=== PATIENT | male | born 1935 | race African-American/Black ===

== ENCOUNTER → 2017-06-13 | Outpatient (CLI) | payer OTHER, MEDICARE ==
[2016-03-12 09:33] VITALS: BP 143/52
[~2017-06-13] MED LIST: AMLO10TA2 PO; ATOR40TA59 PO; ATORVASTATIN CA80 MG PO; BRIM5DRO3 EACHEYE; CAST120O PO; CHOL10003 PO; CYAN10005 PO; DORZ10DR21 EACHEYE; DULO30CA2 PO; FERR325T58 PO; HYDR-2762 PO; LATA2.5D3 EACHEYE; MECL25TA3 PO; METH-37 PO; METO10TA81 PO; METO5TAB PO; ONDA4TAB12 PO; PANT40TA3 PO; PANT40TA5 PO; POTA10TA10 PO; SUCR1TAB PO; SUCR1TAB35 PO; TRAZ50TA15 PO; VENL225T PO; VITA400C6 PO; VITAMIN B12 PO
--- NOTE | 2017-06-13 09:56 | RAD ---
EXAM: ABDOMINAL ULTRASOUND. HISTORY: Weight loss. COMPARISON: 03/08/2016. FINDINGS: Sonographic evaluation of the abdomen was performed. Visualization of the liver is limited but no abnormality is seen. There are no focal lesions. The spleen measures 8.9 cm. The gallbladder is unremarkable without evidence of stones, wall thickening or pericholecystic fluid. There is no sonographic Mora sign. The common duct measures 4 mm. The pancreas is obscured currently. The right kidney measures 9.5 cm. Cortical thickness and echogenicity are preserved. There is no hydronephrosis. The left kidney measures 9.9 cm. Cortical thickness and echogenicity are preserved. There is no hydronephrosis. Cortical lobulation bilaterally is stable and may be developmental. The visualized portions of the abdominal aorta and inferior vena cava are grossly patent and normal in caliber. IMPRESSION: 1. The pancreas is obscured currently. No abnormality is identified.
== END | disposition home or self-care (01) ==
LOC: US 08:47
PROVIDERS: ATTEND Family Medicine
DX: R63.4 Abnormal weight loss (principal); D51.3 Other dietary vitamin B12 deficiency anemia; D50.9 Iron deficiency anemia, unspecified; E11.21 Type 2 diabetes mellitus with diabetic nephropathy; R63.0 Anorexia
CPT/HCPCS: 76700

== ENCOUNTER 2017-06-30 12:19 | Inpatient (IN) | payer MEDICARE, OTHER ==
[~2017-06-30] VITALS: Ht 175.3 cm; Wt 73.5 kg
[2017-06-30] MEDS ORDERED: ONDANSETRON PF 4 MG/2 ML VIAL. IV PRN (13:00)
[2017-06-30] MEDS ORDERED: fentaNYL PF 100 MCG/2 ML VIAL IV PRN (13:00)
[2017-06-30] MEDS ORDERED: IV NORMAL SALINE 1,000ML 1,000 ML IV SCH (13:00)
[2017-06-30] MEDS ORDERED: IOHEXOL 240 MG/ML 50ML VIAL. ONE (13:03)
[2017-06-30] MEDS ORDERED: ONDANSETRON ODT 4 MG TAB.RAPDIS PO PRN (13:15)
[2017-06-30 13:34] VITALS: BP 119/62
[2017-06-30 13:40] LABS: BASO % 0 % (0-3); EOS # 0.2 x10^3/uL (0.0-0.7); EOS % 4 % (0-3); HEMATOCRIT 31.1 % (39.0-53.0); HEMOGLOBIN 10.3 g/dL (13.0-17.5); LYMPH % 17 % (24-48); MEAN CORPUSCULAR HEMOGLOBIN 30 pg (25-35); MEAN CORPUSCULAR HGB CONC 33 g/dL (31-37); MEAN CORPUSCULAR VOLUME 90 fL (79-100); MONO # 0.6 x10^3/uL (0.0-1.1); MONO % 10 % (0-9); NEUT # 4.4 x10^3uL (1.8-7.7); NEUT % 70 % (31-73); PLATELET COUNT 177 x10^3/uL (140-400); RED BLOOD COUNT 3.43 x10^6/uL (4.30-5.70); RED CELL DISTRIBUTION WIDTH 13.7 % (11.5-14.5); WHITE BLOOD COUNT 6.3 x10^3/uL (4.0-11.0)
[2017-06-30 13:48] LABS: ALBUMIN 3.4 g/dL (3.4-5.0); CALCIUM 8.6 mg/dL (8.5-10.1); CREATININE 1.5 mg/dL (0.7-1.3); GFR 54.1; MAGNESIUM 2.1 mg/dL (1.8-2.4); POTASSIUM 3.8 mmol/L (3.5-5.1); TOTAL BILIRUBIN 0.5 mg/dL (0.2-1.0); TOTAL PROTEIN 6.8 g/dL (6.4-8.2)
[2017-06-30] MEDS ORDERED: MECLIZINE 25 MG TABLET PO SCH (14:00)
[2017-06-30] MEDS ORDERED: MECLIZINE 25 MG TABLET PO PRN (14:30)
[2017-06-30] MEDS: METHOCARBAMOL 500 MG TABLET PO SCH ×2 (15:03→21:14)
[2017-06-30] MEDS: POTASSIUM CHLORIDE 30 MEQ in IV 1/2 NORMAL SALINE 1,000 ML IV SCH (15:04)
[2017-06-30] MEDS: POLYETHYLENE GLYCOL 3350 17 GM PACKET. PO SCH (15:07)
--- NOTE | 2017-06-30 15:45 | RAD ---
CT head without contrast 06/30/2017 Clinical indication: Headache. Comparison: CT head January 21, 2016 Technique: Multiple CT noncontrast images of the head were obtained according to standard protocol. RS Compliance Statement: One or more of the following individualized dose reduction techniques were utilized for this examination: 1. Automated exposure control 2. Adjustment of the mA and/or kV according to patient size 3. Use of iterative reconstruction technique Head findings: No acute intracranial hemorrhage or extra-axial fluid collection. There is unchanged moderate patchy and confluent hemispheric white matter low attenuation compatible with moderate nonspecific white matter disease. Ventricles and subarachnoid spaces are normal in size and configuration. Basilar cisterns are patent. No midline shift. There is calcified atheromatous disease of the distal internal carotid arteries. Mastoid air cells and visualized paranasal sinuses are well aerated. Impression: 1. No acute intracranial hemorrhage. 2. Moderate nonspecific white matter disease, most commonly seen in chronic small vessel ischemic disease per
[2017-06-30] MEDS ORDERED: ENOXAPARIN 30 MG/0.3 ML DISP.SYRIN. SQ SCH (16:00)
--- NOTE | 2017-06-30 16:20 | RAD ---
CT abdomen and pelvis with contrast 06/30/2017 Clinical indication: Loss of appetite and diffuse abdominal pain. Comparison: CT abdomen and pelvis March 08, 2016. Technique: Multiple CT images of the abdomen and pelvis were obtained following uneventful intravenous administration of 60 mL Omnipaque 300. PQRS Compliance Statement: One or more of the following individualized dose reduction techniques were utilized for this examination: 1. Automated exposure control 2. Adjustment of the mA and/or kV according to patient size 3. Use of iterative reconstruction technique Findings: Abdomen and pelvis: Heart size and visualized lung bases are clear. Liver, gallbladder, spleen, adrenal glands and pancreas are within normal limits. No intra or extrahepatic biliary ductal dilatation. There is mild areas of cortical scarring both kidneys. There are bilateral renal hypodensities which are too small to definitively characterize. No collecting system dilatation. Abdominal aorta is normal in caliber with mild air iliac calcified atheromatous disease. Major portal, splenic and visualized upper spine mesenteric veins are widely patent. Small and large bowel loops are normal in caliber without obstruction. Appendix is normal in appearance. There are few colonic diverticula without evidence for diverticulitis. No abdominal free fluid. No pneumoperitoneum. No retroperitoneal or mesenteric lymphadenopathy. Mildly distended and unopacified urinary bladder is within normal limits. Prior prostatectomy and bilateral pelvic lymph node dissection and. Seminal vesicles are present. No iliac or inguinal lymphadenopathy. There is multilevel degenerative disc disease of the thoracic and lumbar spine greatest to moderate degree at L5-S1. 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 There are multiple metallic foreign bodies adjacent to the posterior left 10th rib. Impression: 1. No evidence of abdominal pelvic mass or lymphadenopathy. 2. Prior prostatectomy and pelvic lymph node dissection.
[2017-06-30 17:00] VITALS: BP 140/61
[2017-06-30] MEDS: SUCRALFATE 1 GM TABLET. PO SCH ×2 (17:10→21:14)
[2017-06-30 19:36] VITALS: BP 110/57
[2017-06-30] MEDS ORDERED: LATANOPROST 0.005% OPHTH SOLUTION 2.5ML BOTTLE. OU SCH (21:00)
[2017-06-30] MEDS: BRIMONIDINE 0.2% OPHTH SOLUTION 5ML BOTTLE. OU SCH (21:13)
[2017-06-30] MEDS: DORZOLAMIDE/TIMOLOL 2%/0.5% OPHTH SOLUTION 10ML BOTTLE. OU SCH (21:13)
[2017-06-30] MEDS: DOCUSATE SODIUM 100 MG CAPSULE PO SCH (21:13)
[2017-06-30] MEDS: MIRTAZAPINE 30 MG TABLET PO SCH (21:14)
[2017-06-30] MEDS: TAMSULOSIN 0.4 MG CAP.ER.24H. PO SCH (21:14)
[2017-06-30 21:27] LABS: BILIRUBIN,URINE NEG (NEG); CLARITY,URINE CLEAR; COLOR,URINE STRAW; GLUCOSE,URINE NEG (NEG); NITRITE,URINE NEG (NEG); UROBILINOGEN,URINE 0.2 mg/dL (0.2 mg/dL)
[2017-06-30 21:35] LABS: BACTERIA,URINE 0 /HPF (0-FEW); RBC,URINE 0 /HPF (0-2); SQUAMOUS EPITHELIAL CELL,UR OCC /LPF; WBC,URINE OCC /HPF (0-4)
[2017-06-30 22:54] VITALS: BP 133/71
[2017-06-30] MEDS: HYDROcodone/APAP 7.5/325MG 1 TAB TABLET PO PRN (22:57)
[2017-07-01] MEDS: POTASSIUM CHLORIDE 30 MEQ in IV 1/2 NORMAL SALINE 1,000 ML IV SCH ×3 (03:32→20:33)
[2017-07-01 05:57] VITALS: BP 146/49
[2017-07-01 06:06] LABS: BASO % 1 % (0-3); EOS # 0.3 x10^3/uL (0.0-0.7); EOS % 6 % (0-3); HEMATOCRIT 30.9 % (39.0-53.0); HEMOGLOBIN 10.2 g/dL (13.0-17.5); LYMPH # 1.5 x10^3/uL (1.0-4.8); LYMPH % 26 % (24-48); MEAN CORPUSCULAR HEMOGLOBIN 30 pg (25-35); MEAN CORPUSCULAR HGB CONC 33 g/dL (31-37); MEAN CORPUSCULAR VOLUME 90 fL (79-100); MONO # 0.7 x10^3/uL (0.0-1.1); MONO % 12 % (0-9); NEUT # 3.2 x10^3uL (1.8-7.7); NEUT % 56 % (31-73); PLATELET COUNT 178 x10^3/uL (140-400); RED BLOOD COUNT 3.42 x10^6/uL (4.30-5.70); RED CELL DISTRIBUTION WIDTH 13.9 % (11.5-14.5); WHITE BLOOD COUNT 5.7 x10^3/uL (4.0-11.0)
[2017-07-01 06:10] LABS: CALCIUM 8.6 mg/dL (8.5-10.1); CREATININE 1.4 mg/dL (0.7-1.3); GFR 58.6; MAGNESIUM 2.1 mg/dL (1.8-2.4); POTASSIUM 4.2 mmol/L (3.5-5.1)
[2017-07-01] MEDS: POLYETHYLENE GLYCOL 3350 17 GM PACKET. PO SCH (08:58)
[2017-07-01] MEDS: BRIMONIDINE 0.2% OPHTH SOLUTION 5ML BOTTLE. OU SCH ×3 (09:00→20:30)
[2017-07-01] MEDS ORDERED: VENLAFAXINE 50 MG TABLET. PO SCH (09:00)
[2017-07-01] MEDS: DORZOLAMIDE/TIMOLOL 2%/0.5% OPHTH SOLUTION 10ML BOTTLE. OU SCH ×2 (09:00→20:30)
[2017-07-01] MEDS: DOCUSATE SODIUM 100 MG CAPSULE PO SCH ×2 (09:01→20:30)
[2017-07-01] MEDS: POTASSIUM CHLORIDE 10 MEQ TABLET.ER. PO SCH (09:01)
[2017-07-01] MEDS: SUCRALFATE 1 GM TABLET. PO SCH ×4 (09:01→20:30)
[2017-07-01] MEDS: PANTOPRAZOLE 40 MG TABLET. PO SCH (09:01)
[2017-07-01] MEDS: FERROUS SULFATE 325 MG TABLET PO SCH (09:01)
[2017-07-01] MEDS: METHOCARBAMOL 500 MG TABLET PO SCH ×3 (09:01→20:30)
[2017-07-01] MEDS: PHENAZOPYRIDINE 200 MG TABLET. PO SCH (09:01)
[2017-07-01] MEDS: amLODIPine BESYLATE 10 MG TABLET PO SCH (09:02)
[2017-07-01] MEDS: DULoxetine HCL 30 MG CAPSULE.DR PO SCH (09:02)
[2017-07-01] MEDS: HYDROcodone/APAP 7.5/325MG 1 TAB TABLET PO PRN (09:07)
[2017-07-01] MEDS: ENOXAPARIN 40 MG/0.4 ML DISP.SYRIN. SQ SCH (09:08)
[2017-07-01] MEDS: LATANOPROST 0.005% OPHTH SOLUTION 2.5ML BOTTLE. OU SCH ×2 (10:41→20:30)
[2017-07-01 11:25] VITALS: BP 105/55
--- NOTE | 2017-07-01 13:43 | RAD ---
Ventilation/perfusion lung scan, 07/01/2017: History: Elevated d-dimer The ventilation study was performed utilizing 8.5 mCi of xenon-133. Activity in the lungs is mildly heterogeneous. There is minimal patchy retention on the washout phase. Perfusion imaging was performed utilizing 8.5 mCi of xenon-133. A similar pattern of activity is present in the lungs. No significant unmatched or segmental perfusion defects are seen. IMPRESSION: There are no VQ findings to suggest pulmonary emboli.
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
[2017-07-01 15:45] VITALS: BP 121/57
[2017-07-01 19:29] VITALS: BP 121/63
[2017-07-01] MEDS: TAMSULOSIN 0.4 MG CAP.ER.24H. PO SCH (20:30)
[2017-07-01] MEDS: traZODone 50 MG TABLET. PO PRN (20:31)
[2017-07-01] MEDS: MIRTAZAPINE 30 MG TABLET PO SCH (20:31)
[2017-07-01 22:48] VITALS: BP 109/67
--- NOTE | 2017-07-02 01:45 | PN ---
DATE: 07/01/2017 SUBJECTIVE: The patient is still not feeling very well overall, says he just feels sick, hard to put a finger on what exactly he feels well about. He just says he just does not feel good. VITAL SIGNS: His blood pressure is 120/60, respiratory rate 20, pulse 76, afebrile, good oxygen saturation. LABORATORY DATA: His labs showed elevated D-dimer, but the V/Q scan was unremarkable. The patient's chemistries outside ____ slightly elevated creatinine and his electrolytes panel does not look getting things significant. His hemoglobin remained stable at 10.2 and 30. Sed rate was slightly elevated at 18. Otherwise, the urine was unremarkable. The patient had a CT scan of his abdomen and pelvis, which was unremarkable. The chest x-ray was unremarkable and he had a head CT scan that was also unremarkable as well. IMPRESSION: Failure to thrive, dehydration. PLAN: Continue with IV fluids and we will try to make some adjustment on his medication to see if this does not help him. MELLISSA CHAN MD DR: SPENCER/janie JOB#: [id number] / [id number]
[2017-07-02 05:01] VITALS: BP 133/72
[2017-07-02] MEDS: POTASSIUM CHLORIDE 30 MEQ in IV 1/2 NORMAL SALINE 1,000 ML IV SCH ×2 (05:02→20:13)
[2017-07-02 06:15] LABS: BASO % 1 % (0-3); EOS # 0.3 x10^3/uL (0.0-0.7); EOS % 6 % (0-3); HEMATOCRIT 31.8 % (39.0-53.0); HEMOGLOBIN 10.5 g/dL (13.0-17.5); LYMPH # 0.9 x10^3/uL (1.0-4.8); LYMPH % 17 % (24-48); MEAN CORPUSCULAR HEMOGLOBIN 30 pg (25-35); MEAN CORPUSCULAR HGB CONC 33 g/dL (31-37); MEAN CORPUSCULAR VOLUME 91 fL (79-100); MONO # 0.6 x10^3/uL (0.0-1.1); MONO % 11 % (0-9); NEUT # 3.6 x10^3uL (1.8-7.7); NEUT % 66 % (31-73); PLATELET COUNT 181 x10^3/uL (140-400); RED BLOOD COUNT 3.48 x10^6/uL (4.30-5.70); RED CELL DISTRIBUTION WIDTH 13.7 % (11.5-14.5); WHITE BLOOD COUNT 5.4 x10^3/uL (4.0-11.0)
[2017-07-02 06:21] LABS: CALCIUM 8.5 mg/dL (8.5-10.1); CREATININE 1.5 mg/dL (0.7-1.3); GFR 54.1; MAGNESIUM 2.1 mg/dL (1.8-2.4); POTASSIUM 4.8 mmol/L (3.5-5.1)
[2017-07-02] MEDS: BRIMONIDINE 0.2% OPHTH SOLUTION 5ML BOTTLE. OU SCH ×3 (08:30→20:14)
[2017-07-02] MEDS: LATANOPROST 0.005% OPHTH SOLUTION 2.5ML BOTTLE. OU SCH ×2 (08:30→20:14)
[2017-07-02] MEDS: POLYETHYLENE GLYCOL 3350 17 GM PACKET. PO SCH (08:31)
[2017-07-02] MEDS: DORZOLAMIDE/TIMOLOL 2%/0.5% OPHTH SOLUTION 10ML BOTTLE. OU SCH ×2 (08:31→20:14)
[2017-07-02] MEDS: DOCUSATE SODIUM 100 MG CAPSULE PO SCH ×2 (08:32→20:13)
[2017-07-02] MEDS: METHOCARBAMOL 500 MG TABLET PO SCH ×3 (08:32→20:13)
[2017-07-02] MEDS: SUCRALFATE 1 GM TABLET. PO SCH ×4 (08:32→20:13)
[2017-07-02] MEDS: POTASSIUM CHLORIDE 10 MEQ TABLET.ER. PO SCH (08:32)
[2017-07-02] MEDS: ENOXAPARIN 40 MG/0.4 ML DISP.SYRIN. SQ SCH (08:32)
[2017-07-02] MEDS: PANTOPRAZOLE 40 MG TABLET. PO SCH ×2 (08:32→10:26)
[2017-07-02] MEDS: FERROUS SULFATE 325 MG TABLET PO SCH (08:32)
[2017-07-02] MEDS: PHENAZOPYRIDINE 200 MG TABLET. PO SCH (08:33)
[2017-07-02] MEDS: DULoxetine HCL 30 MG CAPSULE.DR PO SCH (08:33)
[2017-07-02] MEDS: amLODIPine BESYLATE 10 MG TABLET PO SCH (08:33)
[2017-07-02] MEDS ORDERED: methylPREDNISolone SOD SUCC PF 40 MG/ML VIAL. IV ONE (10:00)
[2017-07-02 10:37] VITALS: BP 128/67
[2017-07-02 14:36] VITALS: BP 106/61
[2017-07-02 19:18] VITALS: BP 128/66
[2017-07-02] MEDS: MIRTAZAPINE 30 MG TABLET PO SCH (20:13)
[2017-07-02] MEDS: traZODone 50 MG TABLET. PO PRN (20:13)
[2017-07-02] MEDS: TAMSULOSIN 0.4 MG CAP.ER.24H. PO SCH (20:13)
[2017-07-02 23:43] VITALS: BP 128/70
[2017-07-03 05:11] VITALS: BP 142/68
[2017-07-03] MEDS: POTASSIUM CHLORIDE 10 MEQ TABLET.ER. PO SCH (07:30)
[2017-07-03] MEDS: PANTOPRAZOLE 40 MG TABLET. PO SCH ×2 (07:30→08:28)
[2017-07-03] MEDS: PHENAZOPYRIDINE 200 MG TABLET. PO SCH (08:28)
[2017-07-03] MEDS: DOCUSATE SODIUM 100 MG CAPSULE PO SCH ×2 (08:28→20:29)
[2017-07-03] MEDS: SUCRALFATE 1 GM TABLET. PO SCH ×4 (08:28→20:29)
[2017-07-03] MEDS: METHOCARBAMOL 500 MG TABLET PO SCH ×3 (08:28→20:29)
[2017-07-03] MEDS: DULoxetine HCL 30 MG CAPSULE.DR PO SCH (08:28)
[2017-07-03] MEDS: FERROUS SULFATE 325 MG TABLET PO SCH (08:28)
[2017-07-03] MEDS: amLODIPine BESYLATE 10 MG TABLET PO SCH (08:29)
[2017-07-03] MEDS: LATANOPROST 0.005% OPHTH SOLUTION 2.5ML BOTTLE. OU SCH ×2 (08:29→20:28)
[2017-07-03] MEDS: DORZOLAMIDE/TIMOLOL 2%/0.5% OPHTH SOLUTION 10ML BOTTLE. OU SCH ×2 (08:29→20:28)
[2017-07-03] MEDS: BRIMONIDINE 0.2% OPHTH SOLUTION 5ML BOTTLE. OU SCH ×3 (08:29→20:28)
[2017-07-03] MEDS: POLYETHYLENE GLYCOL 3350 17 GM PACKET. PO SCH (08:30)
[2017-07-03] MEDS: ENOXAPARIN 40 MG/0.4 ML DISP.SYRIN. SQ SCH (08:30)
[2017-07-03] MEDS: POTASSIUM CHLORIDE 30 MEQ in IV 1/2 NORMAL SALINE 1,000 ML IV SCH (10:36)
[2017-07-03 11:00] VITALS: BP 136/62
[2017-07-03 15:15] VITALS: BP 111/64
[2017-07-03 16:57] LABS: FECAL OB PT NEGATIVE (NEG)
[2017-07-03] MEDS ORDERED: methylPREDNISolone SOD SUCC PF 40 MG/ML VIAL. IV ONE (17:00)
[2017-07-03] MEDS ORDERED: MAGNESIUM HYDROXIDE 2,400 MG/30 ML ORAL.SUSP. PO PRN (17:00)
[2017-07-03 18:54] VITALS: BP 150/66
[2017-07-03] MEDS: TAMSULOSIN 0.4 MG CAP.ER.24H. PO SCH (20:29)
[2017-07-03] MEDS: MIRTAZAPINE 30 MG TABLET PO SCH (20:29)
--- NOTE | 2017-07-04 01:38 | PN ---
DATE: 06/30/2017 SUBJECTIVE: The patient is still fairly weak having some abdominal discomfort ____ several days. OBJECTIVE: VITAL SIGNS: Otherwise, blood pressure 150/66, respiratory rate 18, pulse 70, and afebrile. LUNGS: Diminished throughout. Some coarse breath sounds. CARDIOVASCULAR: Regular sinus rhythm. ABDOMEN: Soft, bloated, and distended. EXTREMITIES: No clubbing, cyanosis, or edema. NEUROLOGIC: Intact ___. The patient otherwise seems to be doing relatively well. IMPRESSION: Abdominal pain, constipation, weakness, bronchitis, and failure to thrive. PLAN: We will go ahead and continue on the IV antibiotic therapy as well as giving additional laxatives. Continue present drug regimen and hopefully ready for discharge. MELLISSA CHAN MD DR: SPENCER/janie JOB#: [id number] / [id number]
[2017-07-04 06:05] VITALS: BP 162/89
[2017-07-04] MEDS: POLYETHYLENE GLYCOL 3350 17 GM PACKET. PO SCH (07:56)
[2017-07-04] MEDS: FERROUS SULFATE 325 MG TABLET PO SCH (07:57)
[2017-07-04] MEDS: SUCRALFATE 1 GM TABLET. PO SCH (07:57)
[2017-07-04] MEDS: PANTOPRAZOLE 40 MG TABLET. PO SCH ×2 (07:57→08:01)
[2017-07-04] MEDS: amLODIPine BESYLATE 10 MG TABLET PO SCH (07:57)
[2017-07-04] MEDS: DOCUSATE SODIUM 100 MG CAPSULE PO SCH (07:57)
[2017-07-04] MEDS: DORZOLAMIDE/TIMOLOL 2%/0.5% OPHTH SOLUTION 10ML BOTTLE. OU SCH (07:57)
[2017-07-04] MEDS: POTASSIUM CHLORIDE 10 MEQ TABLET.ER. PO SCH (07:57)
[2017-07-04] MEDS: LATANOPROST 0.005% OPHTH SOLUTION 2.5ML BOTTLE. OU SCH (07:58)
[2017-07-04] MEDS: BRIMONIDINE 0.2% OPHTH SOLUTION 5ML BOTTLE. OU SCH (07:58)
[2017-07-04] MEDS: PHENAZOPYRIDINE 200 MG TABLET. PO SCH (08:05)
[2017-07-04] MEDS: DULoxetine HCL 30 MG CAPSULE.DR PO SCH (08:05)
[2017-07-04] MEDS: ENOXAPARIN 40 MG/0.4 ML DISP.SYRIN. SQ SCH (08:05)
[2017-07-04] MEDS: METHOCARBAMOL 500 MG TABLET PO SCH (08:08)
[2017-07-04 10:14] VITALS: BP 112/55
[2017-07-04] MEDS ORDERED: PRED-220 PO (11:42)
== END 2017-07-04 13:50 | disposition home or self-care (01) | DRG 392 ==
LOC: 1 SOUTH 12:41 → ICU 07-04 05:38
PROVIDERS: ADMIT Family Medicine; ATTEND Family Medicine
DX: R10.9 Unspecified abdominal pain (principal); E86.0 Dehydration; J40 Bronchitis, not specified as acute or chronic; K59.00 Constipation, unspecified; R62.7 Adult failure to thrive; I10 Essential (primary) hypertension; K21.9 Gastro-esophageal reflux disease without esophagitis; E78.00 Pure hypercholesterolemia, unspecified; E11.8 Type 2 diabetes mellitus with unspecified complications; M25.561 Pain in right knee
CPT/HCPCS: 36415; 70450; 71020; 74177; 78582; 80048; 80053; 81001; 82274; 83605; 83735; 84484; 85027; 85379; 85651; 87086; 96374; A9540; A9558; J0696; J1650; J2920; J7030; Q0162

== ENCOUNTER → 2017-09-01 | Outpatient (CLI) | payer MEDICARE, OTHER ==
[~2017-09-01] MED LIST changes: +IOHEXOL 240 MG/ML 50ML VIAL. ONE; +IOHEXOL 300 MG/ML 75 ML VIAL. IV ONE; +PRED-220 PO
[2017-09-01 11:27] LABS: CREATININE 1.4 mg/dL (0.7-1.3); GFR 58.6
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
== END | disposition home or self-care (01) ==
LOC: CT 10:37
PROVIDERS: ATTEND Internal Medicine Gastroenterology
DX: N28.89 Other specified disorders of kidney and ureter (principal); R63.4 Abnormal weight loss; K46.9 Unspecified abdominal hernia without obstruction or gangrene; M47.899 Other spondylosis, site unspecified; Z85.46 Personal history of malignant neoplasm of prostate; Z90.79 Acquired absence of other genital organ(s)
CPT/HCPCS: 36415; 71260; 74177; 82565; 84520; Q9966; Q9967

== ENCOUNTER → 2017-12-22 | Day surgery (SDC) | payer MEDICARE, OTHER ==
[2017-12-21 09:08] VITALS: BP 93/58
[~2017-12-22] MED LIST changes: -IOHEXOL 240 MG/ML 50ML VIAL. ONE; -IOHEXOL 300 MG/ML 75 ML VIAL. IV ONE; +IV RINGERS SOLUTION,LACTATED 1,000 ML IV ONE; +PHENYLEPHRINE 10 MG/ML VIAL. IV ONE
== END | disposition home or self-care (01) ==
LOC: SURG 08:21
PROVIDERS: ATTEND Internal Medicine Gastroenterology
DX: K29.70 Gastritis, unspecified, without bleeding (principal); K21.9 Gastro-esophageal reflux disease without esophagitis; E78.00 Pure hypercholesterolemia, unspecified; M19.90 Unspecified osteoarthritis, unspecified site; F32.9 Major depressive disorder, single episode, unspecified; D64.9 Anemia, unspecified; Z98.41 Cataract extraction status, right eye; Z86.39 Personal history of other endocrine, nutritional and metabolic disease; Z98.42 Cataract extraction status, left eye; Z88.8 Allergy status to other drugs, medicaments and biological substances; Z91.048 Other nonmedicinal substance allergy status
CPT/HCPCS: 43239; 82947; J7120

== ENCOUNTER → 2017-12-23 | Outpatient (CLI) | payer OTHER, MEDICARE ==
[2017-12-21 09:08] VITALS: BP 93/58
[~2017-12-23] MED LIST changes: -IV RINGERS SOLUTION,LACTATED 1,000 ML IV ONE; -PHENYLEPHRINE 10 MG/ML VIAL. IV ONE
--- NOTE | 2017-12-23 11:25 | RAD ---
Radionuclide gastric emptying study, 12/23/2017: History: Abdominal pain The study was performed utilizing a solid test meal radiolabeled with 2 mCi of technetium 99m sulfur colloid. The time to half emptying of the test meal from the patient's stomach was estimated at 84 minutes. A normal T1/2 is 60 minutes +/- 30 minutes. IMPRESSION: Normal gastric emptying time.
== END | disposition home or self-care (01) ==
LOC: NM 09:22
PROVIDERS: ATTEND Internal Medicine Gastroenterology
DX: R10.9 Unspecified abdominal pain (principal); I12.9 Hypertensive chronic kidney disease with stage 1 through stage 4 chronic kidney disease, or unspecified chronic kidney disease; E11.22 Type 2 diabetes mellitus with diabetic chronic kidney disease; N18.3 Chronic kidney disease, stage 3 (moderate); E11.21 Type 2 diabetes mellitus with diabetic nephropathy; N17.0 Acute kidney failure with tubular necrosis; D63.1 Anemia in chronic kidney disease
CPT/HCPCS: 78264; A9541

== ENCOUNTER 2018-12-04 07:16 | Emergency (ER) | payer OTHER ==
[~2018-12-04] VITALS: Ht 167.6 cm; Wt 78.6 kg
[~2018-12-04 07:16] MED LIST changes: -AMLO10TA2 PO; +AMLO10TA6 PO; -HYDR-2762 PO; +HYDR-2765 PO; +TRAZ-85 PO; -TRAZ50TA15 PO
[2018-12-04] MEDS ORDERED: LIDOCAINE 1% PF 30 ML VIAL. INJ ONE (08:00)
--- NOTE | 2018-12-04 08:06 | PHYS DOC ---
Past History Past Medical History: Hypertension, Other Past Surgical History: Other Smoking: Non-smoker Alcohol Use: None Drug Use: None Adult General Chief Complaint Chief Complaint: MECHANICAL FALL HPI HPI Patient is a 83 year old male who presents with complaining of a fall this morning. Patient states he wanted to take his trash out and had a fall from his porch and landed on his face and had laceration of his lip and inside of his mouth without loss of consciousness and other injuries. Patient states he is up- to-date with his tetanus immunization. Review of Systems Review of Systems Constitutional: Denies fever or chills [] Eyes: Denies change in visual acuity, redness, or eye pain [] HENT: Denies nasal congestion or sore throat [] Respiratory: Denies cough or shortness of breath [] Cardiovascular: No additional information not addressed in HPI [] GI: Denies abdominal pain, nausea, vomiting, bloody stools or diarrhea [] : Denies dysuria or hematuria [] Musculoskeletal: Denies back pain or joint pain [] Integument: Denies rash or skin lesions, reports laceration [] Neurologic: Denies headache, focal weakness or sensory changes [] Endocrine: Denies polyuria or polydipsia [] All other systems were reviewed and found to be within normal limits, except as documented in this note. Current Medications Current Medications Current Medications Medications (Trade) Dose Ordered Sig/Suzi Start Time Stop Time Status Last Admin Dose Admin Lidocaine HCl (Lidocaine 1% Pf) 30 ml 1X ONCE 12/04/18 08:00 12/04/18 08:01 Allergies Allergies Allergies Coded Allergies Type Severity Reaction Last Updated Verified venom-honey bee Allergy Severe 01/18/16 Yes niacin Allergy Intermediate 01/18/16 Yes oxycodone Allergy Intermediate 01/22/16 Yes sulindac Allergy Intermediate 01/18/16 Yes promethazine Allergy Mild Unknown 06/30/17 Yes Physical Exam Physical Exam Constitutional: Well developed, well nourished, mild distress, non-toxic appearance. [] HENT: Normocephalic, 0.5 cm superficial transverse laceration of lower lip in midline, irregular large laceration of oral mucosa of lower lip with mild bleeding, bilateral external ears normal, oropharynx moist, no oral exudates, nose normal. [] Eyes: Left eye enucleation] Neck: Normal range of motion, no tenderness, supple, no stridor. [] Cardiovascular:Heart rate regular rhythm, no murmur [] Lungs & Thorax: Bilateral breath sounds clear to auscultation [] Abdomen: Bowel sounds normal, soft, no tenderness, no masses, no pulsatile masses. [] Skin: Warm, dry, no erythema, no rash. [] Back: No tenderness, no CVA tenderness. [] Extremities: No tenderness, no cyanosis, no clubbing, ROM intact, no edema. [] Neurologic: Alert and oriented X 3, normal motor function, normal sensory function, no focal deficits noted. [] Psychologic: Affect normal, judgement normal, mood normal. [] EKG EKG [] Radiology/Procedures Radiology/[place] [address] IMAGING REPORT Signed PATIENT: CARLOS ABEL ACCOUNT: [id number] : 1935 LOCATION: ER AGE: 83 SEX: M EXAM STATUS: REG ER ORD. PHYSICIAN: COLIN LAINEZ MD REASON: fall PROCEDURE: CT HEAD AND CERVICAL SPINE WO EXAM: Head and cervical spine CT without contrast. HISTORY: Fall. TECHNIQUE: Computed tomographic images of the head and cervical spine were obtained without contrast. *One or more of the following individualized dose reduction techniques were utilized for this examination: 1. Automated exposure control. 2. Adjustment of the mA and/or kV according to patient size. 3. Use of iterative reconstruction technique. COMPARISON: 06/30/2017. FINDINGS: Head: There is no acute or subacute hemorrhage. There is no mass effect or midline shift. There is no hydrocephalus. There is cerebral atrophy. There is extensive hypodensity throughout the cerebral white matter, likely due to chronic small vessel disease. There are basal ganglia calcifications. There is encephalomalacia within the right cerebellum likely due to chronic infarction. 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 There is evidence of right lens surgery. The mastoid air cells and paranasal sinuses are unremarkable. Cervical spine: There is cervical kyphosis and mild multilevel listhesis. There is degenerative endplate remodeling with disc space narrowing and osteophytosis primarily at C4-C5. There are multiple endplate Schmorl's nodes. There is advanced facet arthropathy at multiple levels. No displaced fracture is seen. There is calcified plaque within the carotid bifurcations. There is a heterogeneous thyroid without discrete nodule. At C2-C3, there is a disc bulge and endplate remodeling. There is moderate right and mild left facet arthropathy. There is a right uncovertebral arthropathy. There is moderate right foraminal stenosis. At C3-C4, there is a disc bulge and endplate osteophytosis. There is mild bilateral facet arthropathy. There is bilateral uncovertebral therapy. There is moderate bilateral foraminal stenosis. At C4-C5, there is a disc bulge and endplate osteophytosis with suspected superimposed left paracentral disc protrusion. There is mild right and moderate left facet arthropathy. There is bilateral uncovertebral therapy. There is mild to moderate right and moderate left foraminal stenosis. At C5-C6, there is a disc bulge and endplate osteophytosis with possible posterior central disc protrusion. There is mild right and moderate left facet arthropathy. There is bilateral uncovertebral arthropathy. There is moderate bilateral foraminal stenosis. At C6-C7, there is a disc bulge and endplate osteophytosis. There is bilateral uncovertebral arthropathy. There is moderate right and [id number] left foraminal stenosis. IMPRESSION: 1. No acute intracranial finding or evidence of acute cervical spine trauma. 2. Extensive hypodensity throughout the cerebral white matter, likely due to chronic small vessel disease. 3. Cerebral atrophy. 4. 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 5. Multilevel degenerative change within the cervical spine, resulting in stenosis as described above. Electronically signed by: Jessica Herrera MD (12/04/2018 9:04 AM) [place] [id number] DICTATED AND SIGNED BY: JESSICA HERRERA MD DATE: 12/04/18 0900 CC: MELLISSA CHAN MD; COLIN LAINEZ MD ~ Course & Med Decision Making Course & Med Decision Making Pertinent Imaging studies reviewed. (See chart for details) Evaluation of patient in ER showed 83-year-old male patient with a fall and injury to oral mucosa with laceration that was repaired in ER without problem. CT head and cervical spine was unremarkable and patient ambulated without problem. Dragon Disclaimer Dragon Disclaimer This electronic medical record was generated, in whole or in part, using a voice recognition dictation system. Departure Departure: Impression: Primary Impression: Laceration of oral cavity Additional Impressions: Avulsion of tooth Lip laceration Fall at home Disposition: HOME, SELF-CARE (at 0913) Condition: IMPROVED Referrals: MELLISSA CHAN MD (PCP) Patient Instructions: Absorbable Suture Repair-Brief, Fall Prevention and Home Safety, Mouth Injury, Generic, Mouth Laceration Additional Instructions: Drink plenty of liquids Follow-up with your primary care physician in 3-5 days Return to ER if not getting better Suture inside of your mouth and lip does not need to remove Scripts Acetaminophen With Codeine (TYLENOL WITH CODEINE #3 TABLET) 1 Each Tablet 1 TAB PO Q6HRS PRN for PAIN, #14 TAB Prov: COLIN LAINEZ MD 12/04/18 Laceration Repair Lac Repair Indication: Oral laceration Procedure: The patient was placed in the appropriate position and anesthesia around the lower leg and insight of oral mucosa with 1% lidocaine was given. The area was then cleaned normal saline, 0.5 cm laceration of lower lip was repaired with one suture of Vicryl 4-0.]. Inside of oral mucosa large laceration of 5 cm was repaired with 8 suture of 4-0 Vicryl. Total repaired wound length: 0.5 and 5 CM Other Items: [OTHER ITEMS] The patient tolerated the procedure well Complications:none Problem Qualifiers COLIN LAINEZ MD Dec 04, 2018 08:06
[2018-12-04 08:53] VITALS: BP 143/53
--- NOTE | 2018-12-04 09:09 | RAD ---
EXAM: Head and cervical spine CT without contrast. HISTORY: Fall. TECHNIQUE: Computed tomographic images of the head and cervical spine were obtained without contrast. *One or more of the following individualized dose reduction techniques were utilized for this examination: 1. Automated exposure control. 2. Adjustment of the mA and/or kV according to patient size. 3. Use of iterative reconstruction technique. COMPARISON: 06/30/2017. FINDINGS: Head: There is no acute or subacute hemorrhage. There is no mass effect or midline shift. There is no hydrocephalus. There is cerebral atrophy. There is extensive hypodensity throughout the cerebral white matter, likely due to chronic small vessel disease. There are basal ganglia calcifications. There is encephalomalacia within the right cerebellum likely due to chronic infarction. 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 There is evidence of right lens surgery. The mastoid air cells and paranasal sinuses are unremarkable. Cervical spine: There is cervical kyphosis and mild multilevel listhesis. There is degenerative endplate remodeling with disc space narrowing and osteophytosis primarily at C4-C5. There are multiple endplate Schmorl's nodes. There is advanced facet arthropathy at multiple levels. No displaced fracture is seen. There is calcified plaque within the carotid bifurcations. There is a heterogeneous thyroid without discrete nodule. At C2-C3, there is a disc bulge and endplate remodeling. There is moderate right and mild left facet arthropathy. There is a right uncovertebral arthropathy. There is moderate right foraminal stenosis. At C3-C4, there is a disc bulge and endplate osteophytosis. There is mild bilateral facet arthropathy. There is bilateral uncovertebral therapy. There is moderate bilateral foraminal stenosis. At C4-C5, there is a disc bulge and endplate osteophytosis with suspected superimposed left paracentral disc protrusion. There is mild right and moderate left facet arthropathy. There is bilateral uncovertebral therapy. There is mild to moderate right and moderate left foraminal stenosis. At C5-C6, there is a disc bulge and endplate osteophytosis with possible posterior central disc protrusion. There is mild right and moderate left facet arthropathy. There is bilateral uncovertebral arthropathy. There is moderate bilateral foraminal stenosis. At C6-C7, there is a disc bulge and endplate osteophytosis. There is bilateral uncovertebral arthropathy. There is moderate right and [id number]-[id number] left foraminal stenosis. IMPRESSION: 1. No acute intracranial finding or evidence of acute cervical spine trauma. 2. Extensive hypodensity throughout the cerebral white matter, likely due to chronic small vessel disease. 3. Cerebral atrophy. 4. 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 5. Multilevel degenerative change within the cervical spine, resulting in stenosis as described above. Electronically signed by: Jessica Sterling MD (12/04/2018 9:04 AM) [facility]
[2018-12-04] MEDS ORDERED: ACET-704 PO (09:17)
== END 2018-12-04 09:20 | disposition home or self-care (01) ==
LOC: ER 07:16
DX: S03.2XXA Dislocation of tooth, initial encounter (principal); S01.511A Laceration without foreign body of lip, initial encounter; S01.512A Laceration without foreign body of oral cavity, initial encounter; S05.72XA Avulsion of left eye, initial encounter; I10 Essential (primary) hypertension; I73.89 Other specified peripheral vascular diseases; G31.9 Degenerative disease of nervous system, unspecified; Z88.5 Allergy status to narcotic agent; Z88.8 Allergy status to other drugs, medicaments and biological substances; Z88.1 Allergy status to other antibiotic agents; Z91.030 Bee allergy status; W10.8XXA Fall (on) (from) other stairs and steps, initial encounter; Y93.E9 Activity, other interior property and clothing maintenance; Y92.098 Other place in other non-institutional residence as the place of occurrence of the external cause; Y99.8 Other external cause status
CPT/HCPCS: 12014; 70450; 72125; 99284; J2001

== ENCOUNTER → 2019-08-17 | Outpatient (CLI) | payer OTHER, MEDICARE ==
[~2019-08-17] MED LIST changes: +ACET-704 PO; -AMLO10TA6 PO; +AMLO10TA8 PO; +CYAN-25 PO; -CYAN10005 PO; +TRAZ-120 PO; -TRAZ-85 PO
--- NOTE | 2019-08-17 12:25 | RAD ---
Right upper quadrant ultrasound 08/17/2019 INDICATION: Right upper quadrant pain x3 years COMPARISON STUDY: None Discussion: The pancreas is nonvisualized secondary overlying gas filled bowel. The gallbladder appears grossly unremarkable without evidence of wall thickening, stones, or sludge. The liver is partially obscured. Visualized portions of liver grossly unremarkable in appearance. Portal venous flow appears to be in the normal direction. The common bile duct is within normal limits in regards to diameter. The liver is within normal limits in regards to size measuring 13 cm longitudinally. The right kidney is grossly unremarkable in appearance measuring 9.3 cm in length. The aorta and IVC are poorly visualized. IMPRESSION: Limited exam without sonographic evidence of acute intra-abdominal abnormality. Electronically signed by: Lucio Walker MD (08/17/2019 12:22 PM) [id number]
== END | disposition home or self-care (01) ==
LOC: US 09:51 → MERGE 09:51
PROVIDERS: ATTEND Surgery
DX: R10.11 Right upper quadrant pain (principal)
CPT/HCPCS: 76705

== ENCOUNTER → 2019-09-03 | Outpatient (CLI) | payer OTHER ==
[~2019-09-03] VITALS: Ht 175.3 cm; Wt 77.1 kg
[~2019-09-03] MED LIST changes: +SINCALIDE 1.54 MCG in IV NORMAL SALINE 50ML 30 ML IV ONE; +VITA-54 PO; -VITA400C6 PO
--- NOTE | 2019-09-03 11:03 | RAD ---
EXAM: HEPATOBILIARY SCINTIGRAPHY WITH GALLBLADDER EJECTION FRACTION CALCULATION. HISTORY: Right upper back pain and nausea. TECHNIQUE: 5.4 mCi technetium-99m Choletec were administered intravenously and scintigraphic images of the abdomen obtained. After filling of the gallbladder, 1.54 mcg of sincalide were infused and the gallbladder ejection fraction calculated. FINDINGS: There is prompt hepatic clearance of tracer from the blood pool. There is homogeneous distribution throughout the liver. There is normal filling of the gallbladder and clearance into the biliary tree and small bowel. The gallbladder ejection fraction is 96% (normal >35%). IMPRESSION: 1. Normal gallbladder ejection fraction. Electronically signed by: Telly Ríos MD (09/03/2019 11:00 AM) [facility]
== END | disposition home or self-care (01) ==
LOC: NM 08:31
PROVIDERS: ATTEND Surgery
DX: M54.6 Pain in thoracic spine (principal); R11.0 Nausea; Z88.8 Allergy status to other drugs, medicaments and biological substances; Z88.6 Allergy status to analgesic agent; Z91.030 Bee allergy status
CPT/HCPCS: 78227; A9537; J2805

== ENCOUNTER → 2019-09-07 | Outpatient (CLI) | payer OTHER ==
[~2019-09-07] MED LIST changes: -SINCALIDE 1.54 MCG in IV NORMAL SALINE 50ML 30 ML IV ONE
--- NOTE | 2019-09-07 13:45 | RAD ---
EXAM: Nuclear gastric emptying scan. HISTORY: Nausea. COMPARISON: 17/05/2018. TECHNIQUE: Serial static images were obtained over the stomach following oral administration of 2 mCi of 99m-Tc sulfur colloid. FINDINGS: The stomach empties into the small bowel without evidence of reflux in the area of the esophagus. The estimated time for half emptying of gastric contents, i.e. 'gastric emptying time' is 130 minutes (normal is 66 +/- 22 minutes). There is 69% retained tracer activity within the stomach at one hour, 51% retained tracer activity at 2 hours, 37% retained tracer activity at 3 hours and 17% retained tracer activity at 4 hours. IMPRESSION: Delayed gastric emptying with a half-time of 130 minutes. Electronically signed by: Jessica Sterling MD (09/07/2019 1:42 PM) [facility]
== END | disposition home or self-care (01) ==
LOC: NM 08:26
PROVIDERS: ATTEND Surgery
DX: K30 Functional dyspepsia (principal); R11.0 Nausea; E11.9 Type 2 diabetes mellitus without complications; I10 Essential (primary) hypertension; E78.00 Pure hypercholesterolemia, unspecified
CPT/HCPCS: 78264; A9541

== ENCOUNTER → 2019-10-03 | Outpatient (CLI) | payer MEDICARE, OTHER ==
[~2019-10-03] MED LIST changes: +IOHEXOL 240 MG/ML 50ML VIAL. ONE
[2019-10-03 09:01] LABS: CREATININE 1.4 mg/dL (0.7-1.3); GFR 58.3
[2019-10-03] MEDS: IOHEXOL 300 MG/ML 75 ML VIAL. IV ONE (09:32)
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
== END | disposition home or self-care (01) ==
LOC: CT 07:45
PROVIDERS: ATTEND Internal Medicine Gastroenterology
DX: K44.9 Diaphragmatic hernia without obstruction or gangrene (principal); E11.9 Type 2 diabetes mellitus without complications; Z90.89 Acquired absence of other organs; Z88.5 Allergy status to narcotic agent; Z88.6 Allergy status to analgesic agent; Z88.8 Allergy status to other drugs, medicaments and biological substances; Z79.01 Long term (current) use of anticoagulants
CPT/HCPCS: 36415; 74177; 82565; 84520; Q9967

== ENCOUNTER 2019-10-07 08:35 | Emergency (ER) | payer MEDICARE, OTHER ==
[~2019-10-07] VITALS: Ht 175.3 cm; Wt 78.6 kg
[~2019-10-07 08:35] MED LIST changes: -IOHEXOL 240 MG/ML 50ML VIAL. ONE
[2019-10-07] MEDS ORDERED: IV NORMAL SALINE 500ML 500 ML IV ONE (09:00)
[2019-10-07] MEDS ORDERED: ONDANSETRON PF 4 MG/2 ML VIAL. IV ONE (09:15)
[2019-10-07 09:23] LABS: BASO % 0 % (0-3); EOS # 0.1 x10^3/uL (0.0-0.7); EOS % 3 % (0-3); HEMATOCRIT 36.9 % (39.0-53.0); LYMPH # 0.9 x10^3/uL (1.0-4.8); LYMPH % 17 % (24-48); MEAN CORPUSCULAR HEMOGLOBIN 30 pg (25-35); MEAN CORPUSCULAR HGB CONC 33 g/dL (31-37); MEAN CORPUSCULAR VOLUME 93 fL (79-100); MONO # 0.6 x10^3/uL (0.0-1.1); MONO % 11 % (0-9); NEUT # 3.7 x10^3uL (1.8-7.7); NEUT % 69 % (31-73); PLATELET COUNT 219 x10^3/uL (140-400); RED BLOOD COUNT 3.97 x10^6/uL (4.30-5.70); RED CELL DISTRIBUTION WIDTH 15.6 % (11.5-14.5); WHITE BLOOD COUNT 5.4 x10^3/uL (4.0-11.0)
[2019-10-07 09:34] LABS: ALBUMIN 3.6 g/dL (3.4-5.0); ALBUMIN/GLOBULIN RATIO 1.2 (1.0-1.7); CALCIUM 8.5 mg/dL (8.5-10.1); CREATININE 1.4 mg/dL (0.7-1.3); GFR 58.3; TOTAL BILIRUBIN 0.9 mg/dL (0.2-1.0); TOTAL PROTEIN 6.6 g/dL (6.4-8.2)
--- NOTE | 2019-10-07 10:44 | PHYS DOC ---
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 Is coming to the ER this morning because having persistent pain again it is been going on for 3 years he is now having diarrhea which is also a chronic problem for him he says it feels like it is just coming out of them every time he eats something patient also significant nausea as well abdominal pain is described as dull upper abdomen Review of Systems Review of Systems Constitutional: Denies fever or chills [] Eyes: Denies change in visual acuity, redness, or eye pain [] HENT: Denies nasal congestion or sore throat [] Respiratory: Denies cough or shortness of breath [] Cardiovascular: No additional information not addressed in HPI [] GI: Integument: Denies rash or skin lesions [] Neurologic: Denies headache, focal weakness or sensory changes [] All other systems were reviewed and found to be within normal limits, except as documented in this note. Current Medications Current Medications Current Medications Medications (Trade) Dose Ordered Sig/Suzi Start Time Stop Time Status Last Admin Dose Admin Ondansetron HCl (Zofran) 4 mg 1X ONCE 10/07/19 09:15 10/07/19 09:16 DC 10/07/19 09:14 4 MG Sodium Chloride 500 ml @ 0 mls/hr 1X ONCE 10/07/19 09:00 10/07/19 09:07 DC 10/07/19 09:14 100 MLS/HR Allergies Allergies Allergies Coded Allergies Type Severity Reaction Last Updated Verified venom-honey bee Allergy Severe 01/18/16 Yes niacin Allergy Intermediate 01/18/16 Yes oxycodone Allergy Intermediate 01/22/16 Yes sulindac Allergy Intermediate 01/18/16 Yes promethazine Allergy Mild Unknown 06/30/17 Yes Physical Exam Physical Exam Constitutional: Well developed, well nourished, no acute distress, non-toxic a ppearance. [] HENT: Normocephalic, atraumatic, bilateral external ears normal, oropharynx moist, no oral exudates, nose normal. [] Eyes: PERRLA, EOMI, conjunctiva normal, no discharge. [] Neck: Normal range of motion, no tenderness, supple, no stridor. [] Cardiovascular:Heart rate regular rhythm, no murmur [] Lungs & Thorax: Bilateral breath sounds clear to auscultation [] Abdomen: Bowel sounds normal, soft, no tenderness, no masses, no pulsatile masses. [] Skin: Warm, dry, no erythema, no rash. [] Back: No tenderness, no CVA tenderness. [] Extremities: No tenderness, no cyanosis, no clubbing, ROM intact, no edema. [] Neurologic: Alert and oriented X 3, normal motor function, normal sensory function, no focal deficits noted. [] Psychologic: Affect normal, judgement normal, mood normal. [] Current Patient Data Vital Signs Vital Signs Date Time Temp Pulse Resp B/P (MAP) Pulse Ox O2 Delivery O2 Flow Rate FiO2 10/07/19 08:40 82 16 99 Room Air one Blood Pressure Systolic * 165 mm Hg (100-140) H Blood Pressure Diastolic * 85 mm Hg (60-100) Blood Pressure Mean * 111 mm Hg Blood Pressure Location * Right Arm Blood Pressure Source * Automatic Cuff Pulse Rate * 82 beats per minute (60-90) Pulse Assessment Method * Monitor Respiratory Rate * 16 breaths per minute (12-24) Oxygen Delivery Method * Room Air Bedside Pulse Oximetry * 99 % Treatment Prior to Arrival * No Complaint of Pain * No Pain Assessment Label * Lower Lab Results Laboratory Tests Test 10/07/19 09:08 White Blood Count 5.4 x10^3/uL (4.0-11.0) Red Blood Count 3.97 x10^6/uL (4.30-5.70) L Hemoglobin 12.0 g/dL (13.0-17.5) L Hematocrit 36.9 % (39.0-53.0) L Mean Corpuscular Volume 93 fL (79-100) Mean Corpuscular Hemoglobin 30 pg (25-35) Mean Corpuscular Hemoglobin Concent 33 g/dL (31-37) Red Cell Distribution Width 15.6 % (11.5-14.5) H Platelet Count 219 x10^3/uL (140-400) Neutrophils (%) (Auto) 69 % (31-73) Lymphocytes (%) (Auto) 17 % (24-48) L Monocytes (%) (Auto) 11 % (0-9) H Eosinophils (%) (Auto) 3 % (0-3) Basophils (%) (Auto) 0 % (0-3) Neutrophils # (Auto) 3.7 x10^3uL (1.8-7.7) Lymphocytes # (Auto) 0.9 x10^3/uL (1.0-4.8) L Monocytes # (Auto) 0.6 x10^3/uL (0.0-1.1) Eosinophils # (Auto) 0.1 x10^3/uL (0.0-0.7) Basophils # (Auto) 0.0 x10^3/uL (0.0-0.2) Sodium Level 145 mmol/L (136-145) Potassium Level 4.0 mmol/L (3.5-5.1) Chloride Level 109 mmol/L (98-107) H Carbon Dioxide Level 27 mmol/L (21-32) Anion Gap 9 (6-14) Blood Urea Nitrogen 14 mg/dL (8-26) Creatinine 1.4 mg/dL (0.7-1.3) H Estimated GFR (Cockcroft-Gault) 58.3 BUN/Creatinine Ratio 10 (6-20) Glucose Level 109 mg/dL (70-99) H Calcium Level 8.5 mg/dL (8.5-10.1) Total Bilirubin 0.9 mg/dL (0.2-1.0) Aspartate Amino Transferase (AST) 23 U/L (15-37) Alanine Aminotransferase (ALT) 19 U/L (16-63) Alkaline Phosphatase 69 U/L (46-116) Total Protein 6.6 g/dL (6.4-8.2) Albumin 3.6 g/dL (3.4-5.0) Albumin/Globulin Ratio 1.2 (1.0-1.7) Lipase 66 U/L (73-393) L EKG EKG [] Radiology/Procedures Radiology/Procedures [] Impressions: 10/03/2019 IMPRESSION: 1. Status post prostatectomy and pelvic lymph node dissection. No evidence of recurrent or metastatic disease. 2. Scarring within the space of Retzius versus anterior abdominal wall repair. No cause for acute pain is identified. 3. Small hiatal hernia. 4. Correlate for mild constipation. *One or more of the following individualized dose reduction techniques were utilized for this examination: 1. Automated exposure control. 2. Adjustment of the mA and/or kV according to patient size. 3. Use of iterative reconstruction technique. Electronically signed by: Telly Ríos MD (10/03/2019 3:51 PM) [facility] Course & Med Decision Making Course & Med Decision Making Pertinent Labs and Imaging studies reviewed. (See chart for details) []History of hypertension diabetes chronic kidney disease chronic abdominal pain presenting with nausea some diarrhea and 3 years of abdominal pain with recent negative CT abdomen and pelvis on October 03 labs looked essentially stable urinalysis is currently pending note is made of delayed gastric emptying study earlier this year follow up with primary care doctor next week for further evaluation and treatment no obvious indication for inpatient admission vital signs are stable., try avni Smith Disclaimer Dragon Disclaimer This electronic medical record was generated, in whole or in part, using a voice recognition dictation system. Departure Departure: Impression: Primary Impression: GENERALIZED ABDOMINAL PAIN Disposition: 01 HOME, SELF-CARE Condition: STABLE Referrals: MELLISSA CHAN MD (PCP) Scripts Ondansetron (ONDANSETRON ODT) 4 Mg Tab.rapdis 1 TAB PO PRN Q6-8HRS PRN for NAUSEA/VOMITING, #16 TAB Prov: JOHN JONES MD 10/07/19 JOHN JONES MD Oct 07, 2019 10:44
[2019-10-07] MEDS ORDERED: ONDA4TAB12 PO (10:47)
[2019-10-07 11:00] LABS: BACTERIA,URINE 0 /HPF (0-FEW); BILIRUBIN,URINE NEG (NEG); CLARITY,URINE CLEAR; COLOR,URINE YELLOW; GLUCOSE,URINE NEG (NEG); NITRITE,URINE NEG (NEG); RBC,URINE 0 /HPF (0-2); UROBILINOGEN,URINE 0.2 mg/dL (0.2 mg/dL); WBC,URINE 0 /HPF (0-4)
[2019-10-07 11:39] VITALS: BP 151/65
== END 2019-10-07 11:39 | disposition home or self-care (01) ==
LOC: ER 08:35
DX: R10.84 Generalized abdominal pain (principal); R19.7 Diarrhea, unspecified; E11.22 Type 2 diabetes mellitus with diabetic chronic kidney disease; N18.9 Chronic kidney disease, unspecified; I12.9 Hypertensive chronic kidney disease with stage 1 through stage 4 chronic kidney disease, or unspecified chronic kidney disease; Z88.5 Allergy status to narcotic agent; Z88.8 Allergy status to other drugs, medicaments and biological substances; Z88.1 Allergy status to other antibiotic agents; Z91.030 Bee allergy status
CPT/HCPCS: 36415; 80053; 81001; 83690; 85025; 96374; 99284; J2405; J7040

== ENCOUNTER 2019-10-11 13:33 | Emergency (ER) | payer MEDICARE, OTHER ==
[~2019-10-11] VITALS: Ht 175.3 cm; Wt 78.6 kg
[2019-10-11] MEDS ORDERED: CIPROFLOXACIN OD (14:03)
--- NOTE | 2019-10-11 14:04 | PHYS DOC ---
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 Patient was cleaning himself from diarrhea. Did not realize he had feces on his finger when he was wiping his eye. Patient is concerned because he only has one eye and it is being treated for glaucoma. He denies any change in vision. Denies any discharge. His diarrheal illness has subsequently improved as well.[] Review of Systems Review of Systems Constitutional: Denies fever or chills [] Eyes: See history of present illness[] HENT: Denies nasal congestion or sore throat [] Respiratory: Denies cough or shortness of breath [] Cardiovascular: No chest pain or palpitations[] GI: Denies abdominal pain, nausea, vomiting, bloody stools[] : Denies dysuria or hematuria [] Musculoskeletal: Denies back pain or joint pain [] Integument: Denies rash or skin lesions [] Neurologic: Denies headache, focal weakness or sensory changes [] Endocrine: Denies polyuria or polydipsia [] All other systems were reviewed and found to be within normal limits, except as documented in this note. Allergies Allergies Allergies Coded Allergies Type Severity Reaction Last Updated Verified venom-honey bee Allergy Severe 01/18/16 Yes niacin Allergy Intermediate 01/18/16 Yes oxycodone Allergy Intermediate 01/22/16 Yes sulindac Allergy Intermediate 01/18/16 Yes promethazine Allergy Mild Unknown 06/30/17 Yes Physical Exam Physical Exam Constitutional: Well developed, well nourished, no acute distress, non-toxic appearance. [] HENT: Normocephalic, atraumatic, bilateral external ears normal, oropharynx moist, no oral exudates, nose normal. [] Eyes: Right eye constricts and accommodates, EOMI, conjunctiva is injected, no discharge. Normal fundus on the right. [] Neck: Normal range of motion, no tenderness, supple, no stridor. [] Cardiovascular:Heart rate regular rhythm, no murmur [] Lungs & Thorax: Bilateral breath sounds clear to auscultation [] Abdomen: Bowel sounds normal, soft, no tenderness, no masses, no pulsatile masses. [] Skin: Warm, dry, no erythema, no rash. [] Back: No tenderness, no CVA tenderness. [] Extremities: No tenderness, no cyanosis, no clubbing, ROM intact, no edema. [] Neurologic: Alert and oriented X 3, normal motor function, normal sensory function, no focal deficits noted. [] Psychologic: Affect normal, judgement normal, mood normal. [] EKG EKG [] Radiology/Procedures Radiology/Procedures [] Course & Med Decision Making Course & Med Decision Making Pertinent Labs and Imaging studies reviewed. (See chart for details) ED course: Patient arrived, was placed in bed, and tolerated exam well. Visual acuity was noted to be 20/200. Patient continues to deny any change in vision Findings and plan were discussed with the patient who voiced understanding. All questions were answered. He was discharged in improved condition. Medical decision making: When to prophylactically treat the patient given his accidental fecal contamination of the eye given that he only has one eye and it is read at baseline from medication and his history for glaucoma. There is no evidence of a significant infection at this time. No evidence of central retinal artery or vein occlusion. No evidence of retained foreign body.[] Dragon Disclaimer Dragon Disclaimer This electronic medical record was generated, in whole or in part, using a voice recognition dictation system. Departure Departure: Impression: Primary Impression: Infection of right eye Disposition: 01 HOME, SELF-CARE Condition: IMPROVED Referrals: MELLISSA CHAN MD (PCP) Patient Instructions: Conjunctivitis (Viral and Bacterial), Conjunctivitis, Chemical Additional Instructions: Follow-up with your regular doctor in 2 days. Continue your current medicines. Return to the ER if worsening pain, purulent drainage, change in vision, or any other concerns. Scripts [Cipro Opthalmalic] No Conflict Check 1 DROP OD Q2HR W/A for CONJUNCTIVITIS for 5 Days Prov: SYBIL JEREZ DO 10/11/19 SYBIL JEREZ DO Oct 11, 2019 14:04
== END 2019-10-11 14:24 | disposition home or self-care (01) ==
LOC: ER 13:38
DX: H44.001 Unspecified purulent endophthalmitis, right eye (principal); E11.39 Type 2 diabetes mellitus with other diabetic ophthalmic complication; H42 Glaucoma in diseases classified elsewhere; I12.9 Hypertensive chronic kidney disease with stage 1 through stage 4 chronic kidney disease, or unspecified chronic kidney disease; N18.9 Chronic kidney disease, unspecified; Z88.5 Allergy status to narcotic agent; Z88.8 Allergy status to other drugs, medicaments and biological substances; Z88.1 Allergy status to other antibiotic agents; Z91.030 Bee allergy status
CPT/HCPCS: 99283

== ENCOUNTER → 2020-01-31 | Outpatient (CLI) | payer MEDICARE, OTHER ==
[~2020-01-31] MED LIST changes: +CIPROFLOXACIN OD; +DEXAMETHASONE SOD PHOS 10 MG/ML VIAL ONE; +IOHEXOL 300 MG/ML 50 ML VIAL. ONE; +LIDOCAINE 1% PF 30 ML VIAL. ONE; +MECL-75 PO; -MECL25TA3 PO
[2020-01-31 11:13] VITALS: BP 178/78
== END ==
LOC: SURG 09:34
PROVIDERS: ATTEND Anesthesiology Pain Medicine
DX: M54.12 Radiculopathy, cervical region (principal); D64.9 Anemia, unspecified; E11.22 Type 2 diabetes mellitus with diabetic chronic kidney disease; I12.9 Hypertensive chronic kidney disease with stage 1 through stage 4 chronic kidney disease, or unspecified chronic kidney disease; N18.9 Chronic kidney disease, unspecified; E78.5 Hyperlipidemia, unspecified; M79.10 Myalgia, unspecified site; H91.90 Unspecified hearing loss, unspecified ear; Z79.82 Long term (current) use of aspirin; Z88.8 Allergy status to other drugs, medicaments and biological substances; Z88.1 Allergy status to other antibiotic agents; Z91.030 Bee allergy status; Z79.84 Long term (current) use of oral hypoglycemic drugs
CPT/HCPCS: 62321; J1100; J2001; Q9967

== ENCOUNTER → 2020-05-29 | Outpatient (CLI) | payer OTHER, MEDICARE ==
[2020-01-31 11:13] VITALS: BP 178/78
[~2020-05-29] MED LIST changes: -DEXAMETHASONE SOD PHOS 10 MG/ML VIAL ONE; -IOHEXOL 300 MG/ML 50 ML VIAL. ONE; -LIDOCAINE 1% PF 30 ML VIAL. ONE
[2020-05-29 12:12] LABS: ALBUMIN 3.4 g/dL (3.4-5.0); CREATININE 1.8 mg/dL (0.7-1.3); GFR 43.5; PHOSPHORUS 3.8 mg/dL (2.6-4.7)
== END ==
LOC: LAB 10:37
PROVIDERS: ATTEND Family Medicine
DX: R10.13 Epigastric pain (principal); R10.84 Generalized abdominal pain; R11.2 Nausea with vomiting, unspecified; R94.4 Abnormal results of kidney function studies; D63.1 Anemia in chronic kidney disease
CPT/HCPCS: 36415; 80069

== ENCOUNTER → 2020-06-30 | Outpatient (CLI) | payer OTHER ==
[2020-01-31 11:13] VITALS: BP 178/78
[2020-06-30 10:57] LABS: BASO % 1 % (0-3); EOS # 0.1 x10^3/uL (0.0-0.7); EOS % 3 % (0-3); HEMATOCRIT 32.1 % (39.0-53.0); HEMOGLOBIN 10.6 g/dL (13.0-17.5); LYMPH # 1.3 x10^3/uL (1.0-4.8); LYMPH % 30 % (24-48); MEAN CORPUSCULAR HEMOGLOBIN 31 pg (25-35); MEAN CORPUSCULAR HGB CONC 33 g/dL (31-37); MEAN CORPUSCULAR VOLUME 93 fL (79-100); MONO # 0.6 x10^3/uL (0.0-1.1); MONO % 13 % (0-9); NEUT # 2.3 x10^3uL (1.8-7.7); NEUT % 53 % (31-73); PLATELET COUNT 211 x10^3/uL (140-400); RED BLOOD COUNT 3.45 x10^6/uL (4.30-5.70); RED CELL DISTRIBUTION WIDTH 13.6 % (11.5-14.5); WHITE BLOOD COUNT 4.4 x10^3/uL (4.0-11.0)
[2020-06-30 11:07] LABS: ALBUMIN 3.6 g/dL (3.4-5.0); CALCIUM 8.8 mg/dL (8.5-10.1); CREATININE 1.9 mg/dL (0.7-1.3); GFR 40.9; PHOSPHORUS 3.5 mg/dL (2.6-4.7); POTASSIUM 4.5 mmol/L (3.5-5.1)
== END | disposition home or self-care (01) ==
LOC: LAB 10:35
PROVIDERS: ATTEND Family Medicine
DX: D63.1 Anemia in chronic kidney disease (principal); R10.13 Epigastric pain; R10.84 Generalized abdominal pain; R11.2 Nausea with vomiting, unspecified; R94.4 Abnormal results of kidney function studies; M51.36 Other intervertebral disc degeneration, lumbar region
CPT/HCPCS: 36415; 80069; 85025

== ENCOUNTER → 2020-07-09 | Outpatient (CLI) | payer OTHER ==
[~2020-07-09] MED LIST changes: +0.9 % SODIUM CHLORIDE 10 ML VIAL. ONE; +CYAN100031 PO; +DEXAMETHASONE SOD PHOS 10 MG/ML VIAL. ONE; +IOHEXOL 300 MG/ML 50 ML VIAL. ONE; +LIDO700A21 TP; +LIDOCAINE 1% PF 30 ML VIAL. ONE; +LOPE2TAB27 PO; +MECL12.573 PO; +MIRT30TA93 PO; +POLY2500 PO
[2020-07-09 12:37] VITALS: BP 159/75
== END | disposition home or self-care (01) ==
LOC: SURG 10:37
PROVIDERS: ATTEND Anesthesiology
DX: M54.12 Radiculopathy, cervical region (principal); M54.2 Cervicalgia; M47.812 Spondylosis without myelopathy or radiculopathy, cervical region; H91.90 Unspecified hearing loss, unspecified ear; E11.22 Type 2 diabetes mellitus with diabetic chronic kidney disease; I12.9 Hypertensive chronic kidney disease with stage 1 through stage 4 chronic kidney disease, or unspecified chronic kidney disease; N18.9 Chronic kidney disease, unspecified; E78.5 Hyperlipidemia, unspecified; K86.1 Other chronic pancreatitis; D64.9 Anemia, unspecified; Z88.8 Allergy status to other drugs, medicaments and biological substances; Z91.018 Allergy to other foods; Z79.4 Long term (current) use of insulin; Z79.82 Long term (current) use of aspirin; Z79.899 Other long term (current) drug therapy
CPT/HCPCS: 62321; J1100; J2001; Q9967

== ENCOUNTER → 2020-07-30 | Outpatient (CLI) | payer OTHER ==
[~2020-07-30] MED LIST changes: -0.9 % SODIUM CHLORIDE 10 ML VIAL. ONE; -DEXAMETHASONE SOD PHOS 10 MG/ML VIAL. ONE; -IOHEXOL 300 MG/ML 50 ML VIAL. ONE; -LIDOCAINE 1% PF 30 ML VIAL. ONE; -PANT40TA5 PO; +PANT40TA6 PO
[2020-07-30 11:07] VITALS: BP 143/72
== END ==
LOC: SURG 10:44
PROVIDERS: ATTEND Anesthesiology
DX: M47.22 Other spondylosis with radiculopathy, cervical region (principal); H91.90 Unspecified hearing loss, unspecified ear; M79.10 Myalgia, unspecified site
CPT/HCPCS: 99213; G0463

== ENCOUNTER → 2020-08-29 | Outpatient (CLI) | payer OTHER ==
[2020-07-30 11:07] VITALS: BP 143/72
[2020-08-29 13:06] LABS: ALBUMIN 3.5 g/dL (3.4-5.0); BASO % 1 % (0-3); CALCIUM 8.7 mg/dL (8.5-10.1); CREATININE 1.7 mg/dL (0.7-1.3); EOS # 0.1 x10^3/uL (0.0-0.7); EOS % 2 % (0-3); GFR 46.5; HEMATOCRIT 31.8 % (39.0-53.0); HEMOGLOBIN 10.3 g/dL (13.0-17.5); LYMPH # 1.7 x10^3/uL (1.0-4.8); LYMPH % 31 % (24-48); MEAN CORPUSCULAR HEMOGLOBIN 30 pg (25-35); MEAN CORPUSCULAR HGB CONC 33 g/dL (31-37); MEAN CORPUSCULAR VOLUME 92 fL (79-100); MONO # 0.7 x10^3/uL (0.0-1.1); MONO % 13 % (0-9); NEUT % 54 % (31-73); PHOSPHORUS 4.1 mg/dL (2.6-4.7); PLATELET COUNT 220 x10^3/uL (140-400); POTASSIUM 4.3 mmol/L (3.5-5.1); RED BLOOD COUNT 3.45 x10^6/uL (4.30-5.70); RED CELL DISTRIBUTION WIDTH 14.3 % (11.5-14.5); WHITE BLOOD COUNT 5.6 x10^3/uL (4.0-11.0)
== END | disposition home or self-care (01) ==
LOC: LAB 12:35
PROVIDERS: ATTEND Family Medicine
DX: R10.13 Epigastric pain (principal)
CPT/HCPCS: 36415; 80069; 85025

== ENCOUNTER → 2020-10-13 | Outpatient (CLI) | payer OTHER ==
[2020-07-30 11:07] VITALS: BP 143/72
[~2020-10-13] MED LIST changes: +AMLO-187 PO; -AMLO10TA8 PO
[2020-10-13 12:25] LABS: HEMATOCRIT 31.4 % (39.0-53.0); HEMOGLOBIN 10.2 g/dL (13.0-17.5)
[2020-10-13 12:37] LABS: ALBUMIN 3.5 g/dL (3.4-5.0); CALCIUM 8.9 mg/dL (8.5-10.1); CREATININE 1.7 mg/dL (0.7-1.3); GFR 46.5; PHOSPHORUS 3.7 mg/dL (2.6-4.7); POTASSIUM 4.2 mmol/L (3.5-5.1)
== END ==
LOC: LAB 11:32
PROVIDERS: ATTEND Internal Medicine Nephrology
DX: I12.9 Hypertensive chronic kidney disease with stage 1 through stage 4 chronic kidney disease, or unspecified chronic kidney disease (principal); N18.31 Chronic kidney disease, stage 3a; E11.22 Type 2 diabetes mellitus with diabetic chronic kidney disease; D64.9 Anemia, unspecified; N40.0 Benign prostatic hyperplasia without lower urinary tract symptoms; Z68.24 Body mass index [BMI] 24.0-24.9, adult
CPT/HCPCS: 36415; 80069; 82306; 82728; 83540; 83550; 85014; 85018

== ENCOUNTER → 2020-10-31 | Outpatient (CLI) | payer OTHER ==
[2020-07-30 11:07] VITALS: BP 143/72
--- NOTE | 2020-10-31 10:00 | RAD ---
INDICATION : Reason: RUQ PAIN, NAUSEA / Spl. Instructions: / History: COMPARISON: October 03, 2019 TECHNIQUE: Multiple ultrasound images obtained through the abdomen in grayscale and color. FINDINGS: Liver: Borderline echogenic. Gallbladder: No wall thickening or stones. IVC: Partially distended at level of liver. Common Bile Duct: Not dilated. Pancreas: Poorly seen secondary to overlying bowel gas obscuring. Right Kidney: No hydronephrosis. Mildly atrophic, 9 cm IMPRESSION: * No definite gallstones or common bile duct dilation. Electronically signed by: Jose Schultz MD (10/31/2020 9:57 AM) [id number]
[2020-10-31] MEDS: SINCALIDE 1.36 MCG in IV NORMAL SALINE 50ML 30 ML IV ONE (10:15)
--- NOTE | 2020-10-31 16:50 | RAD ---
EXAM: Nuclear hepatobiliary scan. HISTORY: Pain. TECHNIQUE: Following intravenous administration of 5.5 mCi Tc 99m Choletec, anterior images of the abdomen were obtained at five minute intervals through one hour. Subsequently, 1.36 mcg CCK was administered and additional images to assess gallbladder ejection fraction were obtained. FINDINGS: There is prompt radiotracer uptake by the liver. No focal defect is seen. There is normal excretion into the biliary tree. The gallbladder is visualized within can minutes and there is free flow into the duodenum. The gallbladder ejection fraction is 97 percent. IMPRESSION: Elevated gallbladder ejection fraction of 97 percent. This can be seen with biliary hyperkinesia. Electronically signed by: Jessica Sterling MD (10/31/2020 12:45 PM) [facility]
== END ==
LOC: US 08:49
PROVIDERS: ATTEND Internal Medicine Gastroenterology
DX: R11.0 Nausea (principal); K82.8 Other specified diseases of gallbladder
CPT/HCPCS: 76705; 78227; A9537; J2805

== ENCOUNTER → 2021-02-16 | Outpatient (CLI) | payer OTHER, MEDICARE ==
[2020-07-30 11:07] VITALS: BP 143/72
[~2021-02-16] MED LIST changes: -MECL12.573 PO; +MECL12.582 PO; +VITA-47 PO; -VITA-54 PO
[2021-02-16 14:16] LABS: BASO % 0 % (0-3); EOS # 0.1 x10^3/uL (0.0-0.7); EOS % 2 % (0-3); HEMATOCRIT 35.7 % (39.0-53.0); HEMOGLOBIN 11.5 g/dL (13.0-17.5); LYMPH # 1.4 x10^3/uL (1.0-4.8); LYMPH % 22 % (24-48); MEAN CORPUSCULAR HEMOGLOBIN 31 pg (25-35); MEAN CORPUSCULAR HGB CONC 32 g/dL (31-37); MEAN CORPUSCULAR VOLUME 95 fL (79-100); MONO # 0.6 x10^3/uL (0.0-1.1); MONO % 10 % (0-9); NEUT # 4.2 x10^3uL (1.8-7.7); NEUT % 66 % (31-73); PLATELET COUNT 213 x10^3/uL (140-400); RED BLOOD COUNT 3.78 x10^6/uL (4.30-5.70); RED CELL DISTRIBUTION WIDTH 14.1 % (11.5-14.5); WHITE BLOOD COUNT 6.3 x10^3/uL (4.0-11.0)
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
[2021-02-16 14:30] LABS: ALBUMIN 3.9 g/dL (3.4-5.0); CALCIUM 9.2 mg/dL (8.5-10.1); CREATININE 1.6 mg/dL (0.7-1.3); GFR 49.8; POTASSIUM 4.7 mmol/L (3.5-5.1); TOTAL BILIRUBIN 0.6 mg/dL (0.2-1.0); TOTAL PROTEIN 7.7 g/dL (6.4-8.2)
[2021-02-16 15:01] LABS: BILIRUBIN,URINE NEG (NEG); CLARITY,URINE CLEAR; COLOR,URINE YELLOW; GLUCOSE,URINE NEG (NEG)
[2021-02-16 15:02] LABS: BACTERIA,URINE 0 /HPF (0-FEW); NITRITE,URINE NEG (NEG); RBC,URINE 0 /HPF (0-2); UROBILINOGEN,URINE 0.2 mg/dL (0.2 mg/dL); WBC,URINE 0 /HPF (0-4)
== END ==
LOC: CT 13:16
PROVIDERS: ATTEND Family Medicine
DX: K44.9 Diaphragmatic hernia without obstruction or gangrene (principal); R10.84 Generalized abdominal pain; R11.0 Nausea; R63.4 Abnormal weight loss; R63.0 Anorexia; Z90.79 Acquired absence of other genital organ(s)
CPT/HCPCS: 36415; 74176; 80053; 81001; 83690; 85025

== ENCOUNTER → 2021-04-01 | Day surgery (SDC) | payer OTHER, MEDICARE ==
[~2021-04-01] MED LIST changes: +BUPIVACAINE MPF 0.25% 10 ML VIAL. ONE; +IOHEXOL 300 MG/ML 50 ML VIAL. ONE; +LIDOCAINE 1% PF 30 ML VIAL. ONE; +methylPREDNISolone ACETATE 80 MG/ML VIAL. ONE
[2021-04-01 09:39] VITALS: BP 171/73
== END | disposition home or self-care (01) ==
LOC: SURG 08:13
PROVIDERS: ATTEND Anesthesiology
DX: M16.12 Unilateral primary osteoarthritis, left hip (principal); E78.00 Pure hypercholesterolemia, unspecified; F32.9 Major depressive disorder, single episode, unspecified; D64.9 Anemia, unspecified; I12.9 Hypertensive chronic kidney disease with stage 1 through stage 4 chronic kidney disease, or unspecified chronic kidney disease; N18.31 Chronic kidney disease, stage 3a; E11.22 Type 2 diabetes mellitus with diabetic chronic kidney disease; E11.39 Type 2 diabetes mellitus with other diabetic ophthalmic complication; E11.51 Type 2 diabetes mellitus with diabetic peripheral angiopathy without gangrene; G47.00 Insomnia, unspecified; Z79.4 Long term (current) use of insulin; Z79.899 Other long term (current) drug therapy; Z79.82 Long term (current) use of aspirin; Z88.8 Allergy status to other drugs, medicaments and biological substances; Z98.41 Cataract extraction status, right eye; Z98.42 Cataract extraction status, left eye; Z98.890 Other specified postprocedural states
CPT/HCPCS: 20610; 77002; J1040; J3490; Q9967

== ENCOUNTER → 2021-04-16 | Outpatient (CLI) | payer OTHER, MEDICARE ==
[2021-04-01 09:39] VITALS: BP 171/73
[~2021-04-16] MED LIST changes: -BUPIVACAINE MPF 0.25% 10 ML VIAL. ONE; -IOHEXOL 300 MG/ML 50 ML VIAL. ONE; -LIDOCAINE 1% PF 30 ML VIAL. ONE; -methylPREDNISolone ACETATE 80 MG/ML VIAL. ONE
[2021-04-16 10:59] LABS: BASO % 1 % (0-3); EOS # 0.1 x10^3/uL (0.0-0.7); EOS % 2 % (0-3); HEMATOCRIT 32.7 % (39.0-53.0); HEMOGLOBIN 10.8 g/dL (13.0-17.5); LYMPH # 1.3 x10^3/uL (1.0-4.8); LYMPH % 24 % (24-48); MEAN CORPUSCULAR HEMOGLOBIN 31 pg (25-35); MEAN CORPUSCULAR HGB CONC 33 g/dL (31-37); MEAN CORPUSCULAR VOLUME 95 fL (79-100); MONO # 0.5 x10^3/uL (0.0-1.1); MONO % 9 % (0-9); NEUT # 3.6 x10^3uL (1.8-7.7); NEUT % 64 % (31-73); PLATELET COUNT 191 x10^3/uL (140-400); RED BLOOD COUNT 3.45 x10^6/uL (4.30-5.70); RED CELL DISTRIBUTION WIDTH 13.4 % (11.5-14.5); WHITE BLOOD COUNT 5.5 x10^3/uL (4.0-11.0)
== END ==
LOC: LAB 10:13
PROVIDERS: ATTEND Internal Medicine Nephrology
DX: C61 Malignant neoplasm of prostate (principal); I12.9 Hypertensive chronic kidney disease with stage 1 through stage 4 chronic kidney disease, or unspecified chronic kidney disease; N18.31 Chronic kidney disease, stage 3a; E11.22 Type 2 diabetes mellitus with diabetic chronic kidney disease; D64.9 Anemia, unspecified; N40.0 Benign prostatic hyperplasia without lower urinary tract symptoms
CPT/HCPCS: 36415; 85025

== ENCOUNTER → 2021-04-29 | Outpatient (CLI) | payer OTHER, MEDICARE ==
[2021-04-01 09:39] VITALS: BP 171/73
[2021-04-29 11:36] LABS: ALBUMIN 3.6 g/dL (3.4-5.0); CALCIUM 8.6 mg/dL (8.5-10.1); CREATININE 1.5 mg/dL (0.7-1.3); GFR 53.6; POTASSIUM 4.5 mmol/L (3.5-5.1)
[2021-04-29 11:37] LABS: PHOSPHORUS 4.1 mg/dL (2.6-4.7)
[2021-04-29 22:06] LABS: CALCIUM PTH 8.7 mg/dL (8.6-10.2); CREATININE PTH 1.41 mg/dL (0.76-1.27); PTH INTACT 107 pg/mL (15-65)
== END ==
LOC: LAB 10:44
PROVIDERS: ATTEND Internal Medicine Nephrology
DX: E11.22 Type 2 diabetes mellitus with diabetic chronic kidney disease (principal); N18.31 Chronic kidney disease, stage 3a; E11.9 Type 2 diabetes mellitus without complications
CPT/HCPCS: 36415; 80069; 82306; 83735; 83970

== ENCOUNTER → 2021-09-28 | Outpatient (CLI) | payer OTHER ==
[2021-04-01 09:39] VITALS: BP 171/73
[2021-09-28 12:07] LABS: ALBUMIN 3.5 g/dL (3.4-5.0); CALCIUM 8.8 mg/dL (8.5-10.1); CREATININE 1.5 mg/dL (0.7-1.3); GFR 53.6; PHOSPHORUS 3.5 mg/dL (2.6-4.7); POTASSIUM 4.2 mmol/L (3.5-5.1)
== END ==
LOC: LAB 10:40
PROVIDERS: ATTEND Internal Medicine Nephrology
DX: I12.9 Hypertensive chronic kidney disease with stage 1 through stage 4 chronic kidney disease, or unspecified chronic kidney disease (principal); E11.22 Type 2 diabetes mellitus with diabetic chronic kidney disease; N40.0 Benign prostatic hyperplasia without lower urinary tract symptoms; N18.31 Chronic kidney disease, stage 3a; D64.9 Anemia, unspecified; C61 Malignant neoplasm of prostate; Z68.23 Body mass index [BMI] 23.0-23.9, adult
CPT/HCPCS: 36415; 80069

== ENCOUNTER → 2021-10-09 | Outpatient (CLI) | payer OTHER, MEDICARE ==
[2021-04-01 09:39] VITALS: BP 171/73
[2021-10-09 12:39] LABS: HEMATOCRIT 31.8 % (39.0-53.0); HEMOGLOBIN 10.3 g/dL (13.0-17.5)
== END ==
LOC: LAB 11:53
PROVIDERS: ATTEND Nurse Practitioner Adult Health
DX: C61 Malignant neoplasm of prostate (principal); I12.9 Hypertensive chronic kidney disease with stage 1 through stage 4 chronic kidney disease, or unspecified chronic kidney disease; N18.31 Chronic kidney disease, stage 3a; E11.22 Type 2 diabetes mellitus with diabetic chronic kidney disease; D64.9 Anemia, unspecified; N40.0 Benign prostatic hyperplasia without lower urinary tract symptoms
CPT/HCPCS: 36415; 82728; 83540; 83550; 85014; 85018

== ENCOUNTER → 2021-10-14 | Day surgery (SDC) | payer OTHER ==
[~2021-10-14] MED LIST changes: +BUPIVACAINE MPF 0.25% 10 ML VIAL. ONE; +IOHEXOL 300 MG/ML 50 ML VIAL. ONE; +LIDOCAINE 1% PF 30 ML VIAL. ONE; +methylPREDNISolone ACETATE 40 MG/ML VIAL. ONE
[2021-10-14 11:06] VITALS: BP 154/66
== END | disposition home or self-care (01) ==
LOC: SURG 10:25
PROVIDERS: ATTEND Anesthesiology
DX: M16.12 Unilateral primary osteoarthritis, left hip (principal); E78.00 Pure hypercholesterolemia, unspecified; F32.9 Major depressive disorder, single episode, unspecified; I12.9 Hypertensive chronic kidney disease with stage 1 through stage 4 chronic kidney disease, or unspecified chronic kidney disease; E11.22 Type 2 diabetes mellitus with diabetic chronic kidney disease; N18.9 Chronic kidney disease, unspecified; D64.9 Anemia, unspecified; Z79.82 Long term (current) use of aspirin; Z79.84 Long term (current) use of oral hypoglycemic drugs; Z79.899 Other long term (current) drug therapy; Z98.890 Other specified postprocedural states; Z88.8 Allergy status to other drugs, medicaments and biological substances
CPT/HCPCS: 20610; 77002; A4209; A4657; A4930; J1030; J3490; Q9967

== ENCOUNTER → 2021-10-29 | Outpatient (CLI) | payer OTHER, MEDICARE ==
[2021-10-14 11:06] VITALS: BP 154/66
[~2021-10-29] MED LIST changes: -BUPIVACAINE MPF 0.25% 10 ML VIAL. ONE; -IOHEXOL 300 MG/ML 50 ML VIAL. ONE; -LIDOCAINE 1% PF 30 ML VIAL. ONE; -methylPREDNISolone ACETATE 40 MG/ML VIAL. ONE
[2021-10-29 14:43] LABS: BASO % 1 % (0-3); EOS # 0.1 x10^3/uL (0.0-0.7); EOS % 1 % (0-3); HEMATOCRIT 33.8 % (39.0-53.0); LYMPH % 19 % (24-48); MEAN CORPUSCULAR HEMOGLOBIN 32 pg (25-35); MEAN CORPUSCULAR HGB CONC 32 g/dL (31-37); MEAN CORPUSCULAR VOLUME 97 fL (79-100); MONO # 0.7 x10^3/uL (0.0-1.1); MONO % 14 % (0-9); NEUT # 3.4 x10^3uL (1.8-7.7); NEUT % 65 % (31-73); PLATELET COUNT 180 x10^3/uL (140-400); RED BLOOD COUNT 3.49 x10^6/uL (4.30-5.70); RED CELL DISTRIBUTION WIDTH 13.8 % (11.5-14.5); WHITE BLOOD COUNT 5.3 x10^3/uL (4.0-11.0)
[2021-10-29 14:54] LABS: ALBUMIN 3.8 g/dL (3.4-5.0); ALBUMIN/GLOBULIN RATIO 1.1 (1.0-1.7); CREATININE 1.6 mg/dL (0.7-1.3); GFR 49.7; POTASSIUM 4.4 mmol/L (3.5-5.1); TOTAL BILIRUBIN 0.5 mg/dL (0.2-1.0); TOTAL PROTEIN 7.3 g/dL (6.4-8.2)
[2021-10-30 00:19] LABS: HEMOGLOBIN A1C 6.1 % (4.8-5.6)
== END ==
LOC: LAB 13:55
PROVIDERS: ATTEND Family Medicine
DX: I12.9 Hypertensive chronic kidney disease with stage 1 through stage 4 chronic kidney disease, or unspecified chronic kidney disease (principal); E11.21 Type 2 diabetes mellitus with diabetic nephropathy; N18.9 Chronic kidney disease, unspecified; D63.1 Anemia in chronic kidney disease
CPT/HCPCS: 36415; 80053; 80061; 83036; 85025

== ENCOUNTER → 2021-12-31 | Outpatient (CLI) | payer OTHER, MEDICARE ==
[2021-10-14 11:06] VITALS: BP 154/66
[2021-12-31 13:43] LABS: BASO % 1 % (0-3); EOS # 0.1 x10^3/uL (0.0-0.7); EOS % 2 % (0-3); HEMATOCRIT 32.4 % (39.0-53.0); HEMOGLOBIN 10.5 g/dL (13.0-17.5); LYMPH # 1.1 x10^3/uL (1.0-4.8); LYMPH % 23 % (24-48); MEAN CORPUSCULAR HEMOGLOBIN 31 pg (25-35); MEAN CORPUSCULAR HGB CONC 33 g/dL (31-37); MEAN CORPUSCULAR VOLUME 96 fL (79-100); MONO # 0.6 x10^3/uL (0.0-1.1); MONO % 12 % (0-9); NEUT % 62 % (31-73); PLATELET COUNT 168 x10^3/uL (140-400); RED BLOOD COUNT 3.37 x10^6/uL (4.30-5.70); RED CELL DISTRIBUTION WIDTH 13.5 % (11.5-14.5); WHITE BLOOD COUNT 4.8 x10^3/uL (4.0-11.0)
[2021-12-31 13:58] LABS: ALBUMIN 3.7 g/dL (3.4-5.0); ALBUMIN/GLOBULIN RATIO 1.2 (1.0-1.7); CALCIUM 8.8 mg/dL (8.5-10.1); CREATININE 1.6 mg/dL (0.7-1.3); GFR 49.7; TOTAL BILIRUBIN 0.7 mg/dL (0.2-1.0); TOTAL PROTEIN 6.9 g/dL (6.4-8.2)
== END ==
LOC: LAB 13:11
PROVIDERS: ATTEND Family Medicine
DX: R10.816 Epigastric abdominal tenderness (principal)
CPT/HCPCS: 36415; 80053; 83690; 85025; 86677

== ENCOUNTER → 2022-01-22 | Outpatient (CLI) | payer OTHER, MEDICARE ==
[2021-10-14 11:06] VITALS: BP 154/66
[2022-01-22 11:47] LABS: HEMATOCRIT 31.4 % (39.0-53.0); HEMOGLOBIN 10.4 g/dL (13.0-17.5)
[2022-01-22 12:04] LABS: ALBUMIN 3.6 g/dL (3.4-5.0); CALCIUM 8.7 mg/dL (8.5-10.1); CREATININE 1.3 mg/dL (0.7-1.3); GFR 63.2; PHOSPHORUS 3.3 mg/dL (2.6-4.7); POTASSIUM 3.7 mmol/L (3.5-5.1)
[2022-01-22 21:06] LABS: CREATININE,RANDOM URINE 115.9 mg/dL (Not Establ.)
[2022-01-23 14:07] LABS: CALCIUM PTH 9.1 mg/dL (8.6-10.2); CREATININE PTH 1.31 mg/dL (0.76-1.27); PTH INTACT 79 pg/mL (15-65)
== END ==
LOC: LAB 10:36
PROVIDERS: ATTEND Nurse Practitioner Adult Health
DX: I12.9 Hypertensive chronic kidney disease with stage 1 through stage 4 chronic kidney disease, or unspecified chronic kidney disease (principal); N18.31 Chronic kidney disease, stage 3a; E11.22 Type 2 diabetes mellitus with diabetic chronic kidney disease; D64.9 Anemia, unspecified; C61 Malignant neoplasm of prostate
CPT/HCPCS: 36415; 80069; 82570; 83970; 84156; 85014; 85018

== ENCOUNTER → 2022-01-27 | Outpatient (CLI) | payer OTHER, MEDICARE ==
[2021-10-14 11:06] VITALS: BP 154/66
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
== END ==
LOC: RAD 08:40
PROVIDERS: ATTEND Internal Medicine Gastroenterology
DX: M47.814 Spondylosis without myelopathy or radiculopathy, thoracic region (principal); M47.816 Spondylosis without myelopathy or radiculopathy, lumbar region
CPT/HCPCS: 74250

== ENCOUNTER → 2022-02-15 | Outpatient (CLI) | payer OTHER, MEDICARE ==
[2021-10-14 11:06] VITALS: BP 154/66
--- NOTE | 2022-02-15 10:25 | RAD ---
INDICATION: Reason: ABD PAIN / Spl. Instructions: / History: COMPARISON: January 2021 TECHNIQUE: Grayscale and color ultrasound images obtained through the abdomen. FINDINGS: Pancreas: Not well seen secondary to overlying structures obscuring. Liver: Echotexture within normal limits. Gallbladder: Echogenic focus is seen at the gallbladder on one of the images but not seen on the othe r therefore may be artifactual in nature. No gallbladder wall thickening is seen. Definite gallstone is not visualized. Common Bile Duct: Not dilated. Right Kidney: No hydronephrosis. Small in size. 86 mm. Aorta/IVC: Limited secondary to overlying structures obscuring. IMPRESSION: * No biliary ductal dilation. * No significant right hydronephrosis. Electronically signed by: Jose Schultz MD (02/15/2022 10:22 AM) [id number]
--- NOTE | 2022-02-15 13:25 | RAD ---
INDICATION: Reason: / Spl. Instructions: / History: Abdominal pain COMPARISON: Ultrasound from same day TECHNIQUE: 5.5mCi of Tc99m Choletec was injected intravenously followed by scintigraphic images of the abdomen. 8 ounces of ensure was given and a gallbladder ejection fraction was calculated. FINDINGS: Appropriate radiotracer clearance from the blood pool. Appropriate radiotracer excretion into the biliary tree. Prompt passage of contrast into the small bowel. Visualization of the gallbladder prior to the 60 minute time point. Gallbladder ejection fraction is 49 percent. IMPRESSION: * No scintigraphic evidence of acute cholecystitis or high grade biliary obstruction. * No evidence of biliary dyskinesia. Electronically signed by: Jose Schultz MD (02/15/2022 1:22 PM) [id number]
== END ==
LOC: US 08:50
PROVIDERS: ATTEND Internal Medicine Gastroenterology
DX: R10.9 Unspecified abdominal pain (principal)
CPT/HCPCS: 76705; 78227; A9537

== ENCOUNTER → 2022-03-15 | Outpatient (CLI) | payer OTHER, MEDICARE ==
[2021-10-14 11:06] VITALS: BP 154/66
[~2022-03-15] MED LIST changes: +IOHEXOL 350 MG/ML 100 ML VIAL. IV ONE
[2022-03-15 10:32] LABS: CREATININE 1.5 mg/dL (0.7-1.3); GFR 53.6
--- NOTE | 2022-03-15 13:17 | RAD ---
CTA abdomen pelvis with contrast dated 03/15/2022. COMPARISON: 02/16/2021. Indication: Abdominal pain. TECHNIQUE: Contiguous axial imaging the abdomen pelvis performed following the intravenous administration of 100 cc Omnipaque 350. Study was performed as dedicated CTA with thin cut coronal and sagittal MIPS recon struction and 3-D rotational reconstruction. One or more of the following individualized dose reduction techniques were utilized for this examinat ion: 1. Automated exposure control 2. Adjustment of the mA and/or kV according to patient size 3. Use of iterative reconstruction technique FINDINGS: Limited images of lung bases are clear. Heart size within normal limits. No pleural or pericardial ef fusion. Abdominal aorta is normal in caliber. No intimal flap or periaortic fluid collection. No aneurysm. Th ere is calcific plaque at the celiac artery and SMA origins resulting in mild narrowing. Bilateral re nal arteries are patent. 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 Bilateral iliac vessels are patent. Common femoral arteries and superficial femoral arteries are patent. Liver and spleen are homogeneous. Pancreas, adrenal glands and kidneys are unremarkable. No hydroneph rosis. Gallbladder is somewhat distended but otherwise unremarkable. Kidneys are somewhat atrophic. Partially opacified GI tract normal in caliber and contour. No focal bowel wall thickening. No inflam matory stranding in the mesentery. No ascites or lymphadenopathy. The appendix is not clearly identif ied. No inflammatory changes in the right lower quadrant. There are a few scattered diverticula withi n the colon. Images the pelvis show nondistended urinary bladder. Prostate gland is surgically absent. Soft tissue thickening and linear opacity in the space of Retzius, unchanged. No free fluid or pelvic lymphadeno gavino. Bone window show no acute findings. Multilevel spondylosis. IMPRESSION: 1. No acute abnormality of abdomen or pelvis. No evidence of aortic aneurysm or intimal flap. 2. 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 3. Mild bilateral renal atrophy. 4. Diverticulosis with no evidence of acute diverticulitis. 5. Postsurgical changes of the prostate, stable. Electronically signed by: Bhupendra Hope MD (03/15/2022 1:14 PM) [facility]
== END ==
LOC: CT 09:44
PROVIDERS: ATTEND Internal Medicine Gastroenterology
DX: K57.90 Diverticulosis of intestine, part unspecified, without perforation or abscess without bleeding (principal); N26.1 Atrophy of kidney (terminal); M47.817 Spondylosis without myelopathy or radiculopathy, lumbosacral region
CPT/HCPCS: 36415; 74174; 82565; 84520; Q9967